=== PATIENT | male | born 1995 | race Caucasian/White ===

== ENCOUNTER 2017-09-11 16:29 | Emergency (ER) | payer OTHER ==
[~2017-09-11] VITALS: Ht 165.1 cm; Wt 60.8 kg
[2017-09-11 16:39] VITALS: Ht 165.1 cm; Wt 60.8 kg
[2017-09-11 17:17] LABS: UA SPECIFIC GRAVITY 1.015 (1.005-1.035); microscopic required? YES; urine erythrocyte NEGATIVE (NEGATIVE)
[2017-09-11 19:26] VITALS: BP 100/64
== END 2017-09-11 19:26 | disposition home or self-care (01) ==
LOC: ED 16:29
PROVIDERS: Emergency Medicine
DX: N43.3 Hydrocele, unspecified (principal)
CPT/HCPCS: 87491; 87591; J1885

== ENCOUNTER 2018-11-21 17:18 | Emergency (ER) | payer OTHER ==
[~2018-11-21] VITALS: Ht 167.6 cm; Wt 67.1 kg
[2018-11-21 17:27] VITALS: BP 129/78; Ht 167.6 cm; Wt 67.1 kg
== END 2018-11-21 18:40 | disposition home or self-care (01) ==
LOC: ED 17:18
DX: R10.2 Pelvic and perineal pain (principal); R10.30 Lower abdominal pain, unspecified
CPT/HCPCS: 87491; 87591